=== PATIENT | female | born 1955 | race Two or more races ===

== ENCOUNTER → 2018-04-15 | Outpatient (CLI) | payer BC | END | disposition home or self-care (01) | LOC: CFH 08:43 | PROVIDERS: ATTEND Internal Medicine | DX: Z12.31 Encounter for screening mammogram for malignant neoplasm of breast (principal); Z13.820 Encounter for screening for osteoporosis; M85.88 Other specified disorders of bone density and structure, other site; Z78.0 Asymptomatic menopausal state | CPT/HCPCS: 77080; 77067 ==